=== PATIENT | female | born 1990 | race Caucasian/White ===

== ENCOUNTER → 2016-12-02 | Outpatient (CLI) | payer BC ==
[~2016-12-02] MED LIST: BCPILLS PO; FEXO1TAB46 PO; FLUT0.0529 NAE
[2016-12-06 03:01] LABS: CHLAMYDIA TRACH RNA*** NOT DETECTED (NOT DETECTED); GC (NEIS GONORRHOEAE)RNA** NOT DETECTED (NOT DETECTED)
== END | disposition home or self-care (01) ==
LOC: C.LABSPEC 13:11
PROVIDERS: ATTEND Obstetrics & Gynecology
DX: Z01.419 Encounter for gynecological examination (general) (routine) without abnormal findings (principal)

== ENCOUNTER → 2018-01-05 | Outpatient (CLI) | payer BC | LOC: C.PAPS 13:52 | PROVIDERS: ATTEND Physician Assistant | DX: Z01.419 Encounter for gynecological examination (general) (routine) without abnormal findings (principal) ==

== ENCOUNTER 2023-10-04 00:58 | Inpatient (IN) ==
[2023-10-04] MEDS ORDERED: LIDOCAINE 1% LOCAL 20 ML VIAL INFIL PRN (02:36)
[2023-10-04] MEDS ORDERED: OXYTOCIN 30 UNITS/500 ML BAG IV PRN ×4 (02:36→20:55)
--- NOTE | 2023-10-04 02:43 | History & Physical Report ---
Date of Service October 04, 2023 Assessment & Plan (1) Velamentous insertion of umbilical cord, antepartum: Plan: 33yo at 38w0d GA present with SROM. 1. Fetus: Cat 1 2. Labor: Confirmed SROM. Start pitocin 3. GBS negative 4. Vitals WNL 5. A1gDM: Normal BG (2) Obesity affecting , antepartum: (3) Gestational diabetes mellitus (GDM) affecting : (4) Supervision of normal first : (5) SROM (spontaneous rupture of membranes): History of Present Illness Primary Care Provider: Sadfa Saldivar DO 33yo at 38w0d GA present with SROM. Reporting irregular contractions. No VB. Good FM and Delivery Plans Pt's brother w/ Bicuspid Aortic Valve - echo - 07/12/23 @ [facility] [place] Obesity (BMI between 35-39 @ beginning of ) *Growth US @ 32 wks *Weekly NSTs @ 36wks GDM w/16wk glucola *Begin monthly Growth US's @24wks Velamentous Cord Insertion and placenta with anterior succenturiate lobe from [facility] US *Growth US Q4wks @28wks *Weekly NSTs @36wks OB Labs: Blood Type O Positive 04/01/23 Antibody Screen NEGATIVE 04/01/23 Hemoglobin 12.5 g/dl (12.0-16.0) 07/29/23 Hematocrit 37.0 % (37.0-47.0) 07/29/23 Mean Corpuscular Volume 89.7 fL (80.0-100.0) 04/01/23 Platelet Count 308 K/uL (130-400) 04/01/23 Rubella IgG Antibody Immune (Immune) 04/01/23 Rapid Plasma Reagin Nonreactive (Nonreactive) 04/01/23 Hepatitis B Surface Antigen. NON-REACTIVE (NON-REACTIVE) 04/01/23 Hepatitis C Antibody Neg (Neg) 12/27/20 Hepatitis C Antibody (EIA) NON-REACTIVE (NON-REACTIVE) 04/01/23 HIV (1&2) Ag and Ab Confirmation NON-REACTIVE (NON-REACTIVE) 04/01/23 Glucose 1 Hour 50 gm Load 152 mg/dl (70-130) H 05/06/23 OB Optional Labs: Chlamydia trachomatis RNA Not Detected (NotDetected) 04/01/23 Neisseria gonorrhoeae RNA Not Detected (NotDetected) 04/01/23 Labs Reviewed: Horizon 14-negative--mln cfdna-low risk--mln Allergies Allergy/AdvReac Type Severity Reaction Status Date / Time Penicillins Allergy Rash Verified 10/04/23 01:28 Home Medications Medication Instructions Recorded Confirmed Type citalopram 40 mg tablet (Celexa) 40 mg PO DAILY 10/10/21 10/04/23 History docosahexaenoic acid [ DHA] 1 tab PO DAILY 03/02/23 10/04/23 History aspirin 81 mg tablet,delayed 81 mg PO DAILY 05/06/23 10/04/23 History release (Adult Aspirin Regimen) acetone (urine) test (Ketone Urine #50 ea 05/27/23 09/30/23 Rx Test strips) blood sugar diagnostic (OneTouch #150 ea 05/27/23 09/30/23 Rx Verio test strips) blood-glucose meter (OneTouch #1 ea 05/27/23 09/30/23 Rx Verio Reflect Meter) lancets 33 gauge #150 ea 05/27/23 09/30/23 Rx Patient History Medical History (Updated 10/04/23 @ 02:45 by Israel Apodaca MD) IBS (irritable bowel syndrome) Depression with anxiety History of chicken pox No pertinent past medical history Surgical History H/O oral surgery wisdom teeth Family History (Updated 03/26/23 @ 15:10 by Yanet Person) Grandmother (Paternal) Breast cancer Colorectal cancer Father Diabetes Multiple myeloma Denies family history of Ovarian cancer Social History (Updated 03/26/23 @ 15:11 by Yanet Person) Smoking Status: Never smoker Second Hand Exposure: No; Do You Dip or Chew Tobacco: No; Hx Alcohol Use: Yes Hx Substance Use: No Preferred Language: Persian Communication Ability: Effective Rn Coronary Care Unit Required: No Beliefs That Will Affect Care: None marital status: marital status details: Aleks Deluca (31) [phone] Current Living Situation: Spouse Current Living Situation Comment: lives with spouse, dog current occupational status: employed current occupation: RN [employer] Other Information That Helps Us Care for You: No Feels Safe at Home: Yes Safety Concerns: Feels Safe At This Time Assistive Devices: Contacts Physical Exam Genitourinary: normal external appearance Manual OB Exam: + cervical dilation 2 cm, + cervical effacement 80%, + station -2 and + amniotic fluid clear OB Exam Monitor Tracing: + external FHT monitor used, + external uter ine monitor used, + category I and + normal FHT variability; no early decelerations present, no late decelerations present and no variable decelerations Results & Data Vital Signs (Past 12 Hours) Vital Signs Temp Pulse Resp BP 10/04/23 01:30 36.8 C 86 18 130/72 10/04/23 01:19 36.8 C 86 18 130/72 Coding Level of Care Code None Diagnoses Velamentous insertion of umbilical cord, antepartum O43.129 Obesity affecting , antepartum, unspecified obesity type O99.210 Obesity type affecting : unspecified obesity Gestational diabetes mellitus (GDM) affecting O24.419 Encounter for supervision of normal first in third trimester Z34.03 Trimester: third trimester SROM (spontaneous rupture of membranes) (2) Obesity affecting , antepartum Obesity type affecting : unspecified obesity Qualified Code(s): O99.210 - Obesity complicating , unspecified trimester (4) Supervision of normal first Trimester: third trimester Qualified Code(s): Z34.03 - Encounter for supervision of normal first , third trimester
[2023-10-04] MEDS: LACTATED RINGER'S 1,000 ML IV PRN ×5 (03:00→18:11)
[2023-10-04 03:23] LABS: Hematocrit (blood only) 38.6 % (37.0-47.0); Hemoglobin 12.8 g/dl (12.0-16.0); Mean Corpuscular Hemoglobin 30.3 pg (25.0-34.0); Mean Corpuscular Hgb Conc 33.2 g/dL (32.0-36.0); Mean Corpuscular Volume 91.3 fL (80.0-100.0); Mean Platelet Volume 10.1 fL (9.4-12.4); Platelet Count 291 K/uL (130-400); RDW Standard Deviation 41.9 fL (36.4-46.3); Red Blood Count 4.23 M/uL (4.20-5.40); White Blood Count 19.81 K/ul (4.8-10.8)
--- NOTE | 2023-10-04 03:49 | Anesthesiology Consultation ---
Date of Service October 04, 2023 Assessment & Plan Chart Review Chart Review: Patient NOT seen in Pre Admission Testing and Acceptable Risk for Labor Epidural Consults Requested none ASA ASA3 Proposed Anesthesia Anesthesia Type: Labor Epidural Risk / Benefits Reviewed With: PT / POA / Parent / Guardian, Accepts Plan and Informed Consent Obtained History Height/Weight Height: 5 ft 5 in Weight: 109.769 kg Allergies Allergy/AdvReac Type Severity Reaction Status Date / Time Penicillins Allergy Rash Verified 10/04/23 01:28 Medications Home Medications Medication Instructions Recorded Confirmed Last Taken citalopram 40 mg tablet (Celexa) 40 mg PO DAILY 10/10/21 10/04/23 10/03/23 22:00 docosahexaenoic acid [ DHA] 1 tab PO DAILY 03/02/23 10/04/23 10/03/23 22:00 aspirin 81 mg tablet,delayed 81 mg PO DAILY 05/06/23 10/04/23 10/03/23 22:00 release (Adult Aspirin Regimen) acetone (urine) test (Ketone Urine #50 ea 05/27/23 09/30/23 Unknown Test strips) blood sugar diagnostic (OneTouch #150 ea 05/27/23 09/30/23 Unknown Verio test strips) blood-glucose meter (OneTouch #1 ea 05/27/23 09/30/23 Unknown Verio Reflect Meter) lancets 33 gauge #150 ea 05/27/23 09/30/23 Unknown Active Medications Generic Name Dose Route Start Last Admin Trade Name Freq PRN Reason Stop Dose Admin Lactated Ringer's 1,000 mls @ 125 mls/hr 10/04/23 02:36 10/04/23 04:00 Lr IV 10/06/23 02:35 125 mls/hr .Q8H PRN Administration L&D Protocol Protocol NPO Date Last Intake of Fluids: 10/04/23 Time Last Intake of Fluids: 03:00 Date Last Intake of Solids: 10/03/23 Time Last Intake of Solids: 17:00 Past Medical History Medical History (Updated 10/04/23 @ 02:45 by Israel Apodaca MD) IBS (irritable bowel syndrome) Depression with anxiety History of chicken pox No pertinent past medical history Exercise / Class Metabolic Activity 1 > 8 Run/Swim/Ski/Tennis Past Family History Family History (Updated 03/26/23 @ 15:10 by Yanet Person) Grandmother (Paternal) Breast cancer Colorectal cancer Father Diabetes Multiple myeloma Denies family history of Ovarian cancer Past Surgical History Surgical History H/O oral surgery wisdom teeth Past Anesthesia History No Hx of Anesthesia Complications and No Family Hx of Anesthesia Complications History of PONV No Hx of PONV and No Hx of Motion Sickness Social History Smoking Status: Never smoker Do You Dip or Chew Tobacco: No Hx Alcohol Use: Yes Hx Substance Use: No substance use type: does not use Review of Systems ROS Unobtainable: All systems reviewed & are unremarkable except as noted in HPI & below Physical Exam Vital Signs Last Vital Signs Temp 36.7 C 10/04/23 03:20 Pulse 86 10/04/23 01:30 Resp 18 10/04/23 01:30 BP 130/72 10/04/23 01:30 Constitutional no acute distress ENMT Mouth: no TMJ abnormality Thyromental Distance: > or= 3.5 Finger Breadths Mallampati Class: III Neck normal visual inspection and trachea midline; neck extension not limited Respiratory normal respiratory effort Auscultation: lungs clear to auscultation bilaterally Cardiovascular Rate/Rhythm: regular rate and regular rhythm Heart Sounds: no murmur Musculoskeletal Spine: normal cervical ROM Extremities: full ROM of extremities Neurologic moves all extremities Psychiatric Orientation: alert and oriented x 3 Testing Laboratory Results 10/04/23 02:58 10/04/23 02:02 POC Glucose 106 H
[2023-10-04] MEDS ORDERED: fentaNYL citrate PF 100 MCG/2 ML VIAL ONE (03:57)
[2023-10-04] MEDS ORDERED: ePHEDrine sulfate 50 MG/ML AMP ONE (03:57)
[2023-10-04] MEDS ORDERED: BUPIVACAINE 0.25% PF 30 ML VIAL ONE (03:58)
[2023-10-04] MEDS ORDERED: SODIUM CHLORIDE 0.9% PF INJ 10 ML VIAL ONE (03:58)
[2023-10-04] MEDS ORDERED: LIDOCAINE 2%/EPINEPHRINE 1:200,000 20 ML PF ONE (03:58)
[2023-10-04] MEDS ORDERED: fentANYL 2 MCG/ML BUPIVacaine 0.125%-NSS 100ML BAG ONE (03:58)
[2023-10-04] MEDS ORDERED: fentaNYL citrate PF 100 MCG/2 ML VIAL EPI STA (04:11)
[2023-10-04] MEDS ORDERED: SODIUM CHLORIDE 0.9% PF INJ 10 ML VIAL EPI STA (04:11)
[2023-10-04] MEDS ORDERED: NALOXONE HCL 1 MG in SODIUM CHLORIDE 0.9% 1,000 ML IV PRN (04:11)
[2023-10-04] MEDS ORDERED: ePHEDrine sulfate 50 MG/ML AMP IV PRN (04:11)
[2023-10-04] MEDS ORDERED: LIDOCAINE 2% MPF LOCAL 5 ML VIAL EPI PRN (04:11)
[2023-10-04] MEDS ORDERED: BUPIVACAINE 0.25% PF 30 ML VIAL EPI PRN (04:11)
[2023-10-04] MEDS ORDERED: diphenhydrAMINE 50 MG/ML VIAL IV PRN (04:11)
[2023-10-04] MEDS ORDERED: BUPIVACAINE 0.25% PF 30 ML VIAL EPI STA (04:11)
[2023-10-04] MEDS ORDERED: ROPIVACAINE 0.5% PF 5 MG/ML 20 ML VIAL EPI PRN (04:11)
[2023-10-04] MEDS ORDERED: NALOXONE HCL 0.4 MG/1 ML VIAL/CARP IV PRN (04:11)
[2023-10-04] MEDS ORDERED: NALBUPHINE HCL 5 MG in SYRINGE 0 ML IV PRN (04:11)
[2023-10-04] MEDS ORDERED: SODIUM CHLORIDE 0.9% PF INJ 10 ML VIAL EPI PRN (04:11)
[2023-10-04] MEDS ORDERED: fentaNYL citrate PF 100 MCG/2 ML VIAL EPI PRN (04:11)
[2023-10-04] MEDS ORDERED: LIDOCAINE 2%/EPINEPHRINE 1:200,000 20 ML PF EPI STA (04:11)
--- NOTE | 2023-10-04 07:51 | Labor Progress Brief Note ---
Date of Service October 04, 2023 Subjective Presented to bedside for evaluation due to a prolonged deceleration. Deceleration lasted approximately 10 minutes. Resuscitation measures were implemented by nursing staff. Upon presentation to bedside I immediately placed a scalp electrode for closer monitoring. Upon placement the scalp electrode the heart rate was noted to be recovering to a baseline of 150 bpm. There was a short period of tachycardia with return to normal baseline heart rate shortly thereafter. Variability was a mix of moderate to minimal. Occasional variable decelerations noted in the immediate recovery phase. Assessment & Plan (1) Velamentous insertion of umbilical cord, antepartum: Plan: 33yo at 38w0d GA present with SROM. Presented to bedside with a prolonged decel as noted per HPI. Resuscitation measures implemented and heart rate recovery noted. You are continue to closely monitor the heart rate which is noted to be a mix of category 1 and category 2 with category 2 for periods of minimal variability and occasional variable deceleration. 1. Fetus: Cat 1/cat2 at present 2. Labor: Confirmed SROM. Pit discontinued. Patient appears to be laboring spontaneously 3. GBS negative 4. Vitals WNL 5. A1gDM: Normal BG (2) SROM (spontaneous rupture of membranes): (3) heart rate decelerations affecting management of mother: Admission and Anticipated Discharge Date Admission Date: October 04, 2023 Physical Exam Genitourinary: normal external appearance Manual OB Exam: + cervical dilation (3.5), + cervical effacement 80%, + station -2 and + amniotic fluid clear OB Exam Monitor Tracing: + external FHT monitor used, + external uterine monitor used, + category I and + category II See HPI for additional details on tracing evaluation. Tocometer showed tachysystole prior to deceleration. Results & Data Vital Signs (Past 12 Hours) Vital Signs Temp Pulse Resp BP Pulse Ox 10/04/23 05:27 100 10/04/23 05:27 92 H 10/04/23 05:26 90 10/04/23 05:26 132/63 10/04/23 05:22 100 10/04/23 05:22 85 10/04/23 05:17 100 10/04/23 05:17 88 10/04/23 05:12 100 10/04/23 05:12 82 10/04/23 05:11 81 10/04/23 05:11 139/61 10/04/23 05:07 100 10/04/23 05:07 84 10/04/23 05:02 100 10/04/23 05:02 87 10/04/23 05:00 18 10/04/23 05:00 18 10/04/23 04:57 100 10/04/23 04:57 89 10/04/23 04:55 96 H 10/04/23 04:55 125/65 10/04/23 04:52 100 10/04/23 04:52 92 H 10/04/23 04:47 100 10/04/23 04:47 127 H 10/04/23 04:44 88 10/04/23 04:44 137/70 10/04/23 04:42 98 10/04/23 04:42 90 10/04/23 04:37 98 10/04/23 04:37 91 H 10/04/23 04:32 98 10/04/23 04:32 100 H 10/04/23 04:27 96 10/04/23 04:27 90 10/04/23 04:27 131/60 10/04/23 04:24 84 10/04/23 04:24 137/62 10/04/23 04:22 97 10/04/23 04:22 86 10/04/23 04:21 85 10/04/23 04:21 139/69 10/04/23 04:18 100 H 10/04/23 04:18 149/66 H 10/04/23 04:17 97 10/04/23 04:17 91 H 10/04/23 04:15 96 H 10/04/23 04:15 133/63 10/04/23 04:12 98 10/04/23 04:12 89 10/04/23 04:12 128/60 10/04/23 04:09 16 10/04/23 04:09 16 10/04/23 04:09 90 10/04/23 04:09 133/62 10/04/23 04:07 98 10/04/23 04:07 89 10/04/23 04:06 16 10/04/23 04:06 16 10/04/23 04:06 81 10/04/23 04:06 132/80 10/04/23 04:03 173 H 10/04/23 04:03 133/82 10/04/23 04:02 99 10/04/23 04:02 97 H 10/04/23 04:00 88 10/04/23 04:00 136/78 10/04/23 03:57 99 10/04/23 03:57 92 H 10/04/23 03:52 100 10/04/23 03:52 91 H 10/04/23 03:47 99 10/04/23 03:47 89 10/04/23 03:20 36.7 C 10/04/23 01:30 36.8 C 86 18 130/72 10/04/23 01:19 36.8 C 86 18 130/72 Coding Level of Care Code None Diagnoses Velamentous insertion of umbilical cord, antepartum O43.129 SROM (spontaneous rupture of membranes) heart rate decelerations affecting management of mother O36.8390
[2023-10-04] MEDS ORDERED: ONDANSETRON INJ 2 MG/ML 2 ML VIAL IV PRN (11:34)
[2023-10-04] MEDS: fentANYL 2 MCG/ML BUPIVacaine 0.125%-NSS 100ML BAG EPI PRN ×2 (12:34→19:02)
--- NOTE | 2023-10-04 13:07 | Labor Progress Brief Note ---
Date of Service October 04, 2023 Subjective Feeling pressure Assessment & Plan (1) SROM (spontaneous rupture of membranes): (2) Velamentous insertion of umbilical cord, antepartum: (3) Gestational diabetes mellitus (GDM) affecting : Plan 33 yo G1 at 38 wga admitted w/ srom VSS Fetus cat 1 Labor - pit at 6 after restarting, IUPC placed. SVE ~7cm, with ctx progresses to 7-8. Will continue repositioning and monitor progress w/ IUPC A1GDM - BG wnl on admit GBS neg epidural prn Admission and Anticipated Discharge Date Admission Date: October 04, 2023 Physical Exam Genitourinary: Manual OB Exam: + cervical dilation 7 cm, + cervical effacement 90% and + station 0 OB Exam Monitor Tracing: + scalp electrode used, + intra-uterine pressure catheter used (placed, q3) and + category I (140/mod/+accel/-decel) Results & Data Vital Signs (Past 12 Hours) Vital Signs Temp Pulse Resp BP Pulse Ox 10/04/23 13:02 99 10/04/23 13:02 95 H 10/04/23 12:58 92 H 10/04/23 12:58 135/83 10/04/23 12:57 96 10/04/23 12:57 92 H 10/04/23 12:52 98 10/04/23 12:52 107 H 10/04/23 12:47 99 10/04/23 12:47 103 H 10/04/23 12:42 98 10/04/23 12:42 95 H 10/04/23 12:42 93 H 10/04/23 12:42 143/79 H 10/04/23 12:37 97 10/04/23 12:37 88 10/04/23 12:32 98 10/04/23 12:32 98 H 10/04/23 12:27 97 10/04/23 12:27 92 H 10/04/23 12:27 138/66 10/04/23 12:22 97 10/04/23 12:22 95 H 10/04/23 12:17 98 10/04/23 12:17 96 H 10/04/23 12:12 97 10/04/23 12:12 88 10/04/23 12:11 78 10/04/23 12:11 120/61 10/04/23 12:07 97 10/04/23 12:07 88 10/04/23 12:02 97 10/04/23 12:02 89 10/04/23 11:57 96 10/04/23 11:57 85 10/04/23 11:56 88 10/04/23 11:56 109/57 L 10/04/23 11:52 97 10/04/23 11:52 88 10/04/23 11:47 97 10/04/23 11:47 82 10/04/23 11:42 98 10/04/23 11:42 90 10/04/23 11:42 117/64 10/04/23 11:37 97 10/04/23 11:37 87 10/04/23 11:32 96 10/04/23 11:32 79 10/04/23 11:30 18 10/04/23 11:30 18 10/04/23 11:27 97 10/04/23 11:27 78 10/04/23 11:27 123/58 L 10/04/23 11:22 96 10/04/23 11:22 79 10/04/23 11:20 18 10/04/23 11:20 98.2 F 18 10/04/23 11:17 96 10/04/23 11:17 100 H 10/04/23 11:12 97 10/04/23 11:12 92 H 10/04/23 11:11 86 10/04/23 11:11 133/72 10/04/23 11:07 98 10/04/23 11:07 91 H 10/04/23 11:02 97 10/04/23 11:02 87 10/04/23 11:00 18 10/04/23 11:00 18 10/04/23 10:58 81 10/04/23 10:58 123/75 10/04/23 10:57 97 10/04/23 10:57 82 10/04/23 10:52 98 10/04/23 10:52 88 10/04/23 10:47 98 10/04/23 10:47 89 10/04/23 10:42 100 10/04/23 10:42 93 H 10/04/23 10:42 85 10/04/23 10:42 136/68 10/04/23 10:37 98 10/04/23 10:37 100 H 10/04/23 10:32 97 10/04/23 10:32 83 10/04/23 10:30 18 10/04/23 10:30 18 10/04/23 10:27 98 10/04/23 10:27 100 H 10/04/23 10:26 85 10/04/23 10:26 131/75 10/04/23 10:22 97 10/04/23 10:22 88 10/04/23 10:17 97 10/04/23 10:17 95 H 10/04/23 10:12 98 10/04/23 10:12 90 10/04/23 10:12 85 10/04/23 10:12 131/74 10/04/23 10:07 97 10/04/23 10:07 100 H 10/04/23 10:02 97 10/04/23 10:02 101 H 10/04/23 09:57 96 10/04/23 09:57 88 10/04/23 09:57 130/67 10/04/23 09:52 96 10/04/23 09:52 96 H 10/04/23 09:47 98 10/04/23 09:47 95 H 10/04/23 09:42 95 10/04/23 09:42 90 10/04/23 09:41 90 10/04/23 09:41 120/72 10/04/23 09:37 97 10/04/23 09:37 98 H 10/04/23 09:32 97 10/04/23 09:32 91 H 10/04/23 09:30 18 10/04/23 09:30 18 10/04/23 09:28 98.2 F 10/04/23 09:27 97 10/04/23 09:27 103 H 10/04/23 09:27 122/69 10/04/23 09:22 97 10/04/23 09:22 103 H 10/04/23 09:17 96 10/04/23 09:17 92 H 10/04/23 09:12 97 10/04/23 09:12 112 H 10/04/23 09:12 102 H 10/04/23 09:12 121/71 10/04/23 09:07 97 10/04/23 09:07 96 H 10/04/23 09:02 97 10/04/23 09:02 102 H 10/04/23 09:00 18 10/04/23 09:00 18 10/04/23 08:57 96 10/04/23 08:57 101 H 10/04/23 08:56 104 H 10/04/23 08:56 128/69 10/04/23 08:52 98 10/04/23 08:52 105 H 10/04/23 08:47 96 10/04/23 08:47 97 H 10/04/23 08:42 97 10/04/23 08:42 95 H 10/04/23 08:41 107 H 10/04/23 08:41 122/65 10/04/23 08:37 96 10/04/23 08:37 97 H 10/04/23 08:32 97 10/04/23 08:32 100 H 10/04/23 08:30 18 10/04/23 08:30 18 10/04/23 08:27 97 10/04/23 08:27 99 H 10/04/23 08:27 93 H 10/04/23 08:27 130/68 10/04/23 08:22 97 10/04/23 08:22 98 H 10/04/23 08:17 98 10/04/23 08:17 99 H 10/04/23 08:12 96 10/04/23 08:12 101 H 10/04/23 08:11 97 H 10/04/23 08:11 129/69 10/04/23 08:07 97 10/04/23 08:07 100 H 10/04/23 08:02 96 10/04/23 08:02 93 H 10/04/23 08:00 18 10/04/23 08:00 18 10/04/23 07:57 96 10/04/23 07:57 96 H 10/04/23 07:57 131/67 10/04/23 07:52 93 10/04/23 07:52 103 H 10/04/23 07:47 97 10/04/23 07:47 116 H 10/04/23 07:43 96 H 10/04/23 07:43 131/72 10/04/23 07:42 96 10/04/23 07:42 97 H 10/04/23 07:38 96 H 10/04/23 07:38 140/70 10/04/23 07:37 96 10/04/23 07:37 96 H 10/04/23 07:32 96 10/04/23 07:32 95 H 10/04/23 07:30 18 10/04/23 07:30 18 10/04/23 07:27 97 10/04/23 07:27 96 H 10/04/23 07:26 93 H 10/04/23 07:26 147/71 H 10/04/23 07:22 97 10/04/23 07:22 89 10/04/23 07:17 96 10/04/23 07:17 99 H 10/04/23 07:15 18 10/04/23 07:15 98.4 F 18 10/04/23 07:12 97 10/04/23 07:12 93 H 10/04/23 07:11 95 H 10/04/23 07:11 146/81 H 10/04/23 07:07 96 10/04/23 07:07 99 H 10/04/23 07:05 94 10/04/23 07:05 93 H 10/04/23 07:02 95 10/04/23 07:02 94 H 10/04/23 07:00 18 10/04/23 07:00 18 10/04/23 06:57 95 10/04/23 06:57 89 10/04/23 06:56 89 10/04/23 06:56 137/71 10/04/23 06:54 94 10/04/23 06:54 92 H 10/04/23 06:52 96 10/04/23 06:52 106 H 10/04/23 06:47 95 10/04/23 06:47 95 H 10/04/23 06:42 97 10/04/23 06:42 105 H 10/04/23 06:42 138/76 10/04/23 06:37 96 10/04/23 06:37 97 H 10/04/23 06:32 96 10/04/23 06:32 98 H 10/04/23 06:30 18 10/04/23 06:30 18 10/04/23 06:27 97 10/04/23 06:27 101 H 10/04/23 06:26 96 H 10/04/23 06:26 133/73 10/04/23 06:22 97 10/04/23 06:22 112 H 10/04/23 06:17 96 10/04/23 06:17 106 H 10/04/23 06:12 100 10/04/23 06:12 106 H 10/04/23 06:11 98 H 10/04/23 06:11 138/76 10/04/23 06:07 100 10/04/23 06:07 98 H 10/04/23 06:02 100 10/04/23 06:02 104 H 10/04/23 06:00 18 10/04/23 06:00 18 10/04/23 05:57 100 10/04/23 05:57 93 H 10/04/23 05:56 100 H 10/04/23 05:56 139/74 10/04/23 05:52 100 10/04/23 05:52 91 H 10/04/23 05:47 100 10/04/23 05:47 92 H 10/04/23 05:42 100 10/04/23 05:42 97 H 10/04/23 05:41 88 10/04/23 05:41 135/74 10/04/23 05:37 100 10/04/23 05:37 93 H 10/04/23 05:32 100 10/04/23 05:32 85 10/04/23 05:30 20 10/04/23 05:30 98.1 F 20 10/04/23 05:27 100 10/04/23 05:27 92 H 10/04/23 05:26 90 10/04/23 05:26 132/63 10/04/23 05:22 100 10/04/23 05:22 85 10/04/23 05:17 100 10/04/23 05:17 88 10/04/23 05:12 100 10/04/23 05:12 82 10/04/23 05:11 81 10/04/23 05:11 139/61 10/04/23 05:07 100 10/04/23 05:07 84 10/04/23 05:02 100 10/04/23 05:02 87 10/04/23 05:00 18 10/04/23 05:00 18 10/04/23 05:00 18 10/04/23 05:00 18 10/04/23 04:57 100 11/13/23 04:57 89 10/04/23 04:55 96 H 10/04/23 04:55 125/65 10/04/23 04:52 100 10/04/23 04:52 92 H 10/04/23 04:47 100 10/04/23 04:47 127 H 10/04/23 04:44 88 10/04/23 04:44 137/70 10/04/23 04:42 98 10/04/23 04:42 90 10/04/23 04:37 98 10/04/23 04:37 91 H 10/04/23 04:32 98 10/04/23 04:32 100 H 10/04/23 04:27 96 10/04/23 04:27 90 10/04/23 04:27 131/60 10/04/23 04:24 84 10/04/23 04:24 137/62 10/04/23 04:22 97 10/04/23 04:22 86 10/04/23 04:21 85 10/04/23 04:21 139/69 10/04/23 04:18 100 H 10/04/23 04:18 149/66 H 10/04/23 04:17 97 10/04/23 04:17 91 H 10/04/23 04:15 96 H 10/04/23 04:15 133/63 10/04/23 04:12 98 10/04/23 04:12 89 10/04/23 04:12 128/60 10/04/23 04:09 16 10/04/23 04:09 16 10/04/23 04:09 90 10/04/23 04:09 133/62 10/04/23 04:07 98 10/04/23 04:07 89 10/04/23 04:06 16 10/04/23 04:06 16 10/04/23 04:06 81 10/04/23 04:06 132/80 10/04/23 04:03 173 H 10/04/23 04:03 133/82 10/04/23 04:02 99 10/04/23 04:02 97 H 10/04/23 04:00 88 10/04/23 04:00 136/78 10/04/23 03:57 99 10/04/23 03:57 92 H 10/04/23 03:52 100 10/04/23 03:52 91 H 10/04/23 03:47 99 10/04/23 03:47 89 10/04/23 03:20 98.1 F 10/04/23 01:30 98.2 F 86 18 130/72 10/04/23 01:19 98.2 F 86 18 130/72 Coding Level of Care Code None Diagnoses SROM (spontaneous rupture of membranes) Velamentous insertion of umbilical cord, antepartum O43.129 Gestational diabetes mellitus (GDM) affecting O24.419
[2023-10-04] MEDS ORDERED: NURSING L&D Epidural Breakthrough Pain Update ONE (13:41)
--- NOTE | 2023-10-04 20:51 | Anesthesia Procedure Note ---
Date of Service October 04, 2023 Anesthesia Post Epidural Note Vital Signs Vital Signs: Temp Pulse Resp BP Pulse Ox 98.6 F 97 H 18 143/68 H 96 10/04/23 19:30 10/04/23 20:37 10/04/23 19:30 10/04/23 20:37 10/04/23 19:59 Pain Intensity Abdomen: Pain Intensity: 8 Notes Mental Status: alert / awake / arousable and participated in evaluation Nausea / Vomiting: adequately controlled Pain: adequately controlled Airway Patency, RR, SpO2: stable & adequate BP & HR: stable & adequate Hydration State: stable & adequate Neuraxial Anesthesia: was administered and sensory block is resolving Anesthetic Complications: no major complications apparent and Pt Satisfied with anesthetic care Epidural: Removed without complications and With tip intact
[2023-10-04] MEDS ORDERED: bisacodyL 10 MG SUPP PR PRN (20:55)
[2023-10-04] MEDS ORDERED: ACETAMINOPHEN 325 MG TAB PO PRN (20:55)
[2023-10-04] MEDS ORDERED: HYDROCORTISONE ACETATE 25 MG SUPP PR PRN (20:55)
[2023-10-04] MEDS ORDERED: DIPHTHERIA/TETANUS/PERTUSSIS Vaccine (Tdap, Age 7+yrs) 0.5mL SYR/VL IM ONE (20:55)
[2023-10-04] MEDS ORDERED: BENZOCAINE 20% SPRY 85 APPLN/85 GM CAN EXT PRN (20:55)
--- NOTE | 2023-10-04 20:59 | Delivery Summary ---
Vaginal Delivery Summary Date of Service October 04, 2023 Vaginal Delivery Summary [facility] PREOPERATIVE DIAGNOSIS: 1. Single intrauterine at 38 wga 2. A1GDM 3. Velamentous cord insertion 4. Succenturiate lobe POSTOPERATIVE DIAGNOSIS: 1. Single intrauterine at 38 wga 2. A1GDM 3. Velamentous cord insertion 4. Bilobe Placenta 5. Delivered PROCEDURE: 1. Normal spontaneous vaginal delivery. SURGEON: Michelle Acevedo MD ANESTHESIA: Epidural. ESTIMATED BLOOD LOSS: 300 mL FLUIDS: Continuous LR. URINE OUTPUT: None. COMPLICATIONS: None. CONDITION: Stable. INDICATIONS: 33 yo G1 at 38 wga presented early this morning with SROM and 2cm on arrival. She was started on pitocin and received an epidural for pain control. Significant decel was noted around 3-4cm and so FSE was applied and pitocin paused. She continued to progress to 6cm however ctx spaced out so pitocin was restarted and IUPC placed to help guide contractions. She did progress to complete and desired to push. FINDINGS: A viable female infant, weight pending with Apgars of 8 and 9 at 1 and 5 minutes respectively. SPECIMEN: Cord blood OPERATIVE REPORT: The patient progressed to 10 cm, 100% effaced and +2 station, pushed over intact perineum with anesthesia to deliver a viable female infant, weight and Apgars as above. Head of delivered in ELADIO position. No nuchal cord was present. Body and shoulders were delivered without difficulty. was delivered to maternal abdomen and nursing staff. Delayed cord clamping was performed for 60 seconds. Cord was clamped and cut. Cord blood was obtained. Placenta delivered spontaneously intact with 3-vessel cord. IV oxytocin and fundal massage were given for excellent hemostasis. Vagina, cervix, perineum, and placenta were inspected. A vaginal laceration and right labial laceration were made hemostatic with 3-0 and 4-0 vicryl respectively. A hemostatic periclitoral laceration did not need to be repaired. Sponge and needle counts correct x2. No sponges were left behind. Mother and stable in immediate period. [facility] Vaginal Delivery Charge Vaginal Delivery Codes: 75501 global code for the antepartum, delivery, and post- Delivery Type Details: [facility]
[2023-10-04] MEDS: DOCUSATE SODIUM 100 MG CAP PO SCH (21:24)
[2023-10-04] MEDS: IBUPROFEN 600 MG TAB PO PRN (21:25)
--- NOTE | 2023-10-05 07:20 | Obstetrical Progress Note ---
Date of Service October 05, 2023 Assessment & Plan (1) care following vaginal delivery: Plan Doing well Encourage ambulation Pain control Admission and Anticipated Discharge Date Admission Date: October 04, 2023 Supervising Physician Co-Signing Physician Notes Resident Physician Supervision Note: I interviewed and examined the patient. Discussed with Dr. Marcano and agree with findings and plan as documented in the note. Any exceptions or clarifications are listed here: PP1 s/p , doing well. VSS, exam benign and wnl. Continue routine pp care Documented By: Michelle Acevedo MD Subjective 33 yo post day 1 s/p Ambulation: ambulating normally Voiding: no voiding problems Passing Gas:: Yes Diet Tolerance:: regular diet Lochia:: Small Feeding Type:: bottle feeding Current Pain Level: minimal Resting comfortably this AM in NAD. Denies WILEY, CP, SOB, N/V/D, LE pain/swelling. Review of Systems Review of Systems: reviewed, per HPI Physical Exam Physical Exam: General: patient resting comfortably, NAD, non-toxic in appearance, answers questions appropriately. Skin: warm, dry, intact HEENT: NC/AT, anicteric sclera, conjunctiva without injection, moist mucus membranes. Heart: +S1/S2, regular, no m/r/g Lungs: equal air entry bilaterally, no rales/rhonchi/wheezes Abd: +BS, soft, uterine fundus firm at umbilicus. Ext: warm, no clubbing/cyanosis or edema, Lawanda's neg. Neuro: speech intact, no facial droop, moving all extremities on command. Results & Data Vital Signs (Past 12 Hours) Vital Signs Temp Pulse Pulse Resp BP BP Pulse Ox 10/05/23 02:25 36.7 C 80 18 113/70 10/04/23 22:50 37.0 C 88 18 135/80 10/04/23 22:37 90 10/04/23 22:37 146/68 H 10/04/23 22:23 96 H 10/04/23 22:23 153/80 H 10/04/23 22:07 86 10/04/23 22:07 146/67 H 10/04/23 22:03 18 10/04/23 21:52 95 H 10/04/23 21:52 163/74 H 10/04/23 21:37 90 10/04/23 21:37 156/83 H 10/04/23 21:22 93 H 10/04/23 21:22 153/80 H 10/04/23 21:07 18 10/04/23 21:07 96 H 10/04/23 21:07 149/80 H 10/04/23 20:52 91 H 10/04/23 20:52 149/70 H 10/04/23 20:37 36.7 C 18 10/04/23 20:37 97 H 10/04/23 20:37 143/68 H 10/04/23 20:26 93 H 10/04/23 20:26 136/67 10/04/23 20:11 96 H 10/04/23 20:11 138/71 10/04/23 19:59 96 10/04/23 19:59 109 H 10/04/23 19:54 90 10/04/23 19:54 113 H 10/04/23 19:53 87 L 10/04/23 19:53 121 H 10/04/23 19:49 96 10/04/23 19:49 108 H 10/04/23 19:46 105 H 10/04/23 19:46 147/74 H 10/04/23 19:44 95 10/04/23 19:44 131 H 10/04/23 19:41 85 L 10/04/23 19:41 102 H 10/04/23 19:39 98 10/04/23 19:39 126 H 10/04/23 19:36 89 L 10/04/23 19:36 116 H 10/04/23 19:34 95 10/04/23 19:34 106 H 10/04/23 19:30 18 10/04/23 19:30 37.0 C 18 10/04/23 19:29 94 10/04/23 19:29 108 H 10/04/23 19:28 87 L 10/04/23 19:28 101 H 10/04/23 19:24 93 10/04/23 19:24 102 H 10/04/23 19:19 95 10/04/23 19:19 104 H O2 Del Method 10/05/23 02:25 Room Air 10/04/23 22:50 Room Air 10/04/23 22:37 10/04/23 22:37 11/13/23 22:23 10/04/23 22:23 10/04/23 22:07 10/04/23 22:07 10/04/23 22:03 10/04/23 21:52 10/04/23 21:52 10/04/23 21:37 10/04/23 21:37 10/04/23 21:22 10/04/23 21:22 10/04/23 21:07 10/04/23 21:07 10/04/23 21:07 10/04/23 20:52 10/04/23 20:52 10/04/23 20:37 10/04/23 20:37 10/04/23 20:37 10/04/23 20:26 10/04/23 20:26 10/04/23 20:11 10/04/23 20:11 10/04/23 19:59 10/04/23 19:59 10/04/23 19:54 10/04/23 19:54 10/04/23 19:53 10/04/23 19:53 10/04/23 19:49 10/04/23 19:49 10/04/23 19:46 10/04/23 19:46 10/04/23 19:44 10/04/23 19:44 10/04/23 19:41 10/04/23 19:41 10/04/23 19:39 10/04/23 19:39 10/04/23 19:36 10/04/23 19:36 10/04/23 19:34 10/04/23 19:34 10/04/23 19:30 10/04/23 19:30 10/04/23 19:29 10/04/23 19:29 10/04/23 19:28 10/04/23 19:28 10/04/23 19:24 10/04/23 19:24 10/04/23 19:19 10/04/23 19:19 Resident Activity Tracking Resident Involvement: Resident Care Provided Care Provided: Adult Hospital Medicine
[2023-10-05] MEDS: FERROUS SULFATE 325 MG TAB PO SCH (07:53)
[2023-10-05] MEDS: DOCUSATE SODIUM 100 MG CAP PO SCH ×2 (07:53→20:42)
[2023-10-05] MEDS: PRENATAL VITAMIN 1 TAB PO SCH (07:53)
[2023-10-05] MEDS: IBUPROFEN 600 MG TAB PO PRN ×4 (07:54→23:15)
[2023-10-05] MEDS: CITALOPRAM 40 MG TAB PO SCH (07:54)
[2023-10-05] MEDS ORDERED: bisacodyL 5 MG TABEC PO SCH (20:00)
[2023-10-06] MEDS: DOCUSATE SODIUM 100 MG CAP PO SCH (07:41)
[2023-10-06] MEDS: FERROUS SULFATE 325 MG TAB PO SCH (07:41)
[2023-10-06] MEDS: PRENATAL VITAMIN 1 TAB PO SCH (07:42)
[2023-10-06] MEDS: IBUPROFEN 600 MG TAB PO PRN (07:43)
--- NOTE | 2023-10-06 07:51 | Obstetrical Progress Note ---
Date of Service October 06, 2023 Assessment & Plan (1) care following vaginal delivery: Plan Doing well Encourage ambulation Pain control Discharge today Admission and Anticipated Discharge Date Admission Date: October 04, 2023 Supervising Physician Co-Signing Physician Notes Resident Physician Supervision Note: I was present with Dr. Marcano during the history and exam. I discussed the case with the resident and agree with the findings and plan as documented in the note. Any exceptions or clarifications are listed here: [None] Documented By: Laureano Quinn MD, FACOG Subjective 33 yo post day 2 s/p Ambulation: ambulating normally Voiding: no voiding problems Passing Gas:: Yes Diet Tolerance:: regular diet Lochia:: Small Feeding Type:: bottle feeding Current Pain Level: minimal Resting comfortably this AM in NAD. Denies WILEY, CP, SOB, N/V/D, LE pain/swelling. Review of Systems Review of Systems: reviewed, per HPI Physical Exam Physical Exam: General: patient resting comfortably, NAD, non-toxic in appearance, answers questions appropriately. Skin: warm, dry, intact HEENT: NC/AT, anicteric sclera, conjunctiva without injection, moist mucus membranes. Heart: +S1/S2, regular, no m/r/g Lungs: equal air entry bilaterally, no rales/rhonchi/wheezes Abd: +BS, soft, uterine fundus firm at umbilicus. Ext: warm, no clubbing/cyanosis or edema, Lawanda's neg. Neuro: speech intact, no facial droop, moving all extremities on command. Results & Data Vital Signs (Past 12 Hours) Vital Signs Temp Pulse Resp BP Pulse Ox O2 Del Method 10/05/23 23:15 36.6 C 73 18 109/72 97 Room Air Resident Activity Tracking Resident Involvement: Resident Care Provided Care Provided: Adult Hospital Medicine
[2023-10-06] MEDS: CITALOPRAM 40 MG TAB PO SCH (08:44)
== END 2023-10-06 14:00 | disposition home or self-care (01) | DRG 807 ==
LOC: OPB 00:58 → 4S1 01:01 → 4E2 23:00
DX: F32.A Depression, unspecified; O76 Abnormality in fetal heart rate and rhythm complicating labor and delivery; Z83.3 Family history of diabetes mellitus; O70.0 First degree perineal laceration during delivery; O42.92 Full-term premature rupture of membranes, unspecified as to length of time between rupture and onset of labor; O26.893 Other specified pregnancy related conditions, third trimester; Z79.899 Other long term (current) drug therapy; E66.9 Obesity, unspecified; O99.344 Other mental disorders complicating childbirth; O43.193 Other malformation of placenta, third trimester; Z88.0 Allergy status to penicillin; O99.214 Obesity complicating childbirth; O24.429 Gestational diabetes mellitus in childbirth, unspecified control; Z82.79 Family history of other congenital malformations, deformations and chromosomal abnormalities; O43.123 Velamentous insertion of umbilical cord, third trimester; F41.9 Anxiety disorder, unspecified; Z79.82 Long term (current) use of aspirin; Z3A.38 38 weeks gestation of pregnancy; Z37.0 Single live birth

== ENCOUNTER 2025-10-05 07:46 | Inpatient (IN) ==
[2025-10-05] MEDS ORDERED: CALCIUM CARBONATE 500 MG CHEWABLE TAB PO PRN (08:04)
[2025-10-05] MEDS ORDERED: LIDOCAINE 1% LOCAL 20 ML VIAL INFIL PRN (08:04)
[2025-10-05] MEDS ORDERED: OXYTOCIN 30 UNITS/NSS 30 UNITS/500 ML BAG IV PRN ×2 (08:04→18:10)
--- NOTE | 2025-10-05 08:06 | History & Physical Report ---
Date of Service October 05, 2025 Assessment & Plan (1) 39 weeks gestation of : Plan Fair bulb to be inserted Pitocin Arom when indicated Monitor tracing, category 1 Admission and Anticipated Discharge Date Admission Date: October 05, 2025 History of Present Illness Chief Complaint: IOL Primary Care Provider: Sadaf Saldivar DO 35 yo at 39w2d admitted for IOL for postdates. complications include diet-controlled GDM. She takes Celexa 40mg daily as well as a vitamin. Denies WILEY, CP, SOB, N/V/D, LE pain. GBS neg, RH+ Allergies Allergy/AdvReac Type Severity Reaction Status Date / Time Penicillins Allergy Rash Verified 10/04/25 15:02 Home Medications Medication Instructions Recorded Confirmed Type citalopram 40 mg tablet (Celexa) 40 mg PO DAILY 10/10/21 10/04/25 History pyridoxine (vitamin B6) 25 mg 25 mg PO TID #30 tabs 02/26/25 10/04/25 Rx tablet promethazine PO 03/02/25 10/04/25 History promethazine 12.5 mg tablet 12.5 mg PO Q6H PRN nausea and 03/09/25 10/04/25 Rx vomiting #30 tabs acetone (urine) test (Ketone Urine #50 ea 03/30/25 10/04/25 Rx Test strips) blood sugar diagnostic (OneTouch #150 ea 03/30/25 10/04/25 Rx Verio test strips) blood-glucose meter (OneTouch #1 ea 03/30/25 10/04/25 Rx Verio Reflect Meter) lancets 33 gauge (OneTouch Delica #150 ea 03/30/25 10/04/25 Rx Plus Lancet) ondansetron HCl 4 mg tablet 4 mg PO Q6H PRN nausea and 04/03/25 10/04/25 Rx vomiting #120 tabs Patient History Medical History [place]'s gland inflammation Obesity affecting , antepartum IBS (irritable bowel syndrome) Depression with anxiety History of chicken pox Surgical History H/O oral surgery Family History (Updated 03/02/25 @ 10:00 by Yanet Person) Grandmother (Paternal) Breast cancer Colorectal cancer Father Diabetes Multiple myeloma Brother Bicuspid aortic valve Denies family history of Ovarian cancer Social History (Updated 03/02/25 @ 09:53 by Yanet Person) Smoking Status: Never smoker Second Hand Exposure: No; Do You Dip or Chew Tobacco: No; Hx Alcohol Use: Yes Hx Substance Use: No Preferred Language: Niuean Communication Ability: Effective Financial Sales Representative Required: No Beliefs That Will Affect Care: None marital status: marital status details: Aleks Deluca (33) [phone] Current Living Situation: Spouse and Family Current Living Situation Comment: lives with spouse, child, dog current occupational status: employed current occupation: RN [employer] Feels Safe at Home: Yes Assistive Devices: Contacts OB History History : 2 Full term: 1 Premature: 0 Total Number of Induced Abortions: 0 Total Number of Spontaneous Abortions: 0 Ectopics: 0 Multiple births: 0 Number of Living Children: 1 [employer] History Menstrual History Last menstrual period: Yes Menstrual reliability: definite Flow: normal Menstrual regularity: regular Monthly: Yes Age at menarche: 16 On control pills at conception: No Date of positive home test: 02/18/25 Menstrual history comments: cycles 28-30 days Details: last pap 10/10/[address] Downey Review of Systems All systems reviewed & are unremarkable except as noted in HPI & below Physical Exam Constitutional: WD/WN, vitals as above Respiratory: normal respiratory effort, lungs clear to auscultation Cardiovascular: RRR, no murmur, no edema Gastrointestinal (Abdomen): normal bowel sounds, soft, nontender, no hepatosplenomegaly +gravid Skin: no rashes, warm and dry Psychiatric: A+Ox3, euthymic affect Results & Data Laboratory Results OB Labs: Blood Type O Positive 03/09/25 Antibody Screen NEGATIVE 03/09/25 Hgb 11.0 g/dl (12.0-16.0) L 07/27/25 Hct 32.9 % (37.0-47.0) L 07/27/25 MCV 89.8 fL (80.0-100.0) 03/09/25 Plt Count 306 K/uL (130-400) 03/09/25 Rubella IgG Antibody Immune (Immune) 03/09/25 RPR Nonreactive (Nonreactive) 04/01/23 Treponema pallidum Ab Negative (Negative) 07/27/25 Hep Bs Antigen Negative (Negative) 03/09/25 Hep Bs Antigen NON-REACTIVE (NON-REACTIVE) 04/01/23 Hepatitis C Antibody Negative (Negative) 03/09/25 Hepatitis C Ab (EIA) NON-REACTIVE (NON-REACTIVE) 04/01/23 HIV 1&2 Ab/P24 Ag 4thGn Negative (Negative) 03/09/25 HIV (1&2) Ag & Ab Conf NON-REACTIVE (NON-REACTIVE) 04/01/23 Glucose 1 Hr 50 gm 152 mg/dl (70-130) H 05/06/23 OB Optional Labs: Chlamydia trachomatis RNA Not Detected (NotDetected) 03/09/25 Neisseria gonorrhoeae RNA Not Detected (NotDetected) 03/09/25 Monitoring External Monitor HR: 140 Variability: moderate Accelerations: present Decelerations: absent Contractions: absent Category 1 tracing Resident Activity Tracking Resident Involvement: Resident Care Provided Care Provided: OB Delivery
[2025-10-05 08:29] LABS: Hematocrit (blood only) 34.3 % (37.0-47.0); Hemoglobin 11.5 g/dL (12.0-16.0); Mean Corpuscular Hemoglobin 28.3 pg (25.0-34.0); Mean Corpuscular Volume 84.3 fL (80.0-100.0); Platelet Count 279 K/uL (130-400); RDW Standard Deviation 41.7 fL (36.4-46.3); Red Blood Count 4.07 M/uL (4.20-5.40); White Blood Count 11.74 K/ul (4.8-10.8)
[2025-10-05] MEDS: LACTATED RINGER'S 1,000 ML IV PRN (08:31)
[2025-10-05] MEDS: OXYTOCIN 30 UNITS/NSS 30 UNITS/500 ML BAG IV PRN (09:43)
[2025-10-05] MEDS ORDERED: diphenhydrAMINE 50 MG/ML VIAL IV PRN (11:03)
[2025-10-05] MEDS ORDERED: LIDOCAINE 2% MPF LOCAL 5 ML VIAL EPI PRN (11:03)
[2025-10-05] MEDS ORDERED: BUPIVACAINE 0.25% PF 30 ML VIAL EPI PRN (11:03)
[2025-10-05] MEDS ORDERED: NALOXONE HCL 1 MG in SODIUM CHLORIDE 0.9% 1,000 ML IV PRN (11:03)
[2025-10-05] MEDS ORDERED: fentANYL 2 MCG/ML BUPIVacaine 0.125%-NSS 100ML BAG EPI PRN (11:03)
[2025-10-05] MEDS ORDERED: NALOXONE HCL 0.4 MG/1 ML VIAL/CARP IV PRN (11:03)
[2025-10-05] MEDS ORDERED: ROPIVACAINE 0.5% PF 5 MG/ML 20 ML VIAL EPI PRN (11:03)
[2025-10-05] MEDS ORDERED: NALBUPHINE HCL INJ 10 MG/ML AMP IV PRN (11:03)
[2025-10-05] MEDS ORDERED: SODIUM CHLORIDE 0.9% PF INJ 10 ML VIAL EPI PRN (11:03)
--- NOTE | 2025-10-05 11:03 | Anesthesiology Consultation ---
Date of Service October 05, 2025 Assessment & Plan (1) Encounter for pre-operative examination: Chart Review Chart Review: Patient NOT seen in Pre Admission Testing and Acceptable Risk for Labor Epidural Consults Requested none History Height/Weight Height: 5 ft 5 in Weight: 108.141 kg Allergies Allergy/AdvReac Type Severity Reaction Status Date / Time Penicillins Allergy Rash Verified 10/04/25 15:02 Medications Home Medications Medication Instructions Recorded Confirmed Last Taken citalopram 40 mg tablet (Celexa) 40 mg PO DAILY 10/10/21 10/05/25 10/04/25 21:00 pyridoxine (vitamin B6) 25 mg 25 mg PO TID #30 tabs 02/26/25 10/04/25 Unknown tablet promethazine PO 03/02/25 10/04/25 Unknown promethazine 12.5 mg tablet 12.5 mg PO Q6H PRN nausea and 03/09/25 10/04/25 Unknown vomiting #30 tabs acetone (urine) test (Ketone Urine #50 ea 03/30/25 10/04/25 Unknown Test strips) blood sugar diagnostic (OneTouch #150 ea 03/30/25 10/04/25 Unknown Verio test strips) blood-glucose meter (OneTouch #1 ea 03/30/25 10/04/25 Unknown Verio Reflect Meter) lancets 33 gauge (OneTouch Delica #150 ea 03/30/25 10/04/25 Unknown Plus Lancet) ondansetron HCl 4 mg tablet 4 mg PO Q6H PRN nausea and 04/03/25 10/04/25 Unknown vomiting #120 tabs Active Medications Generic Name Dose Route Start Last Admin Trade Name Freq PRN Reason Stop Dose Admin Oxytocin 30 units in 500 mls @ 2 mls/hr 10/05/25 08:05 10/05/25 11:01 Pitocin 30 Units/Nss IV 10/07/25 08:04 0.12 units/hr .Q24H PRN 2 mls/hr Labor Induction/Augmentation Titration Protocol 0.12 UNITS/HR Lactated Ringer's 1,000 mls @ 125 mls/hr 10/05/25 08:04 10/05/25 08:31 Lr IV 10/07/25 08:03 125 mls/hr .Q8H PRN Administration L&D Protocol Protocol Past Medical History Medical History [place]'s gland inflammation Obesity affecting , antepartum IBS (irritable bowel syndrome) Depression with anxiety History of chicken pox Past Family History Family History Grandmother (Paternal) Breast cancer Colorectal cancer Father Diabetes Multiple myeloma Brother Bicuspid aortic valve Denies family history of Ovarian cancer Past Surgical History Surgical History H/O oral surgery wisdom teeth Social History Smoking Status: Never smoker Do You Dip or Chew Tobacco: No Hx Alcohol Use: Yes Hx Substance Use: No substance use type: does not use Physical Exam Vital Signs Last Vital Signs Temp 98.1 F 10/05/25 09:01 Pulse 82 10/05/25 10:18 Resp 22 10/05/25 09:01 BP 105/62 10/05/25 10:18 Testing Laboratory Results 10/05/25 08:15
[2025-10-05] MEDS: LIDOCAINE 2%/EPINEPHRINE 1:200,000 20 ML PF EPI STA (11:32)
[2025-10-05] MEDS: BUPIVACAINE 0.25% PF 30 ML VIAL EPI STA (11:32)
[2025-10-05] MEDS: fentANYL 2 MCG/ML BUPIVacaine 0.125%-NSS 100ML BAG ONE (11:33)
[2025-10-05] MEDS: ONDANSETRON INJ 2 MG/ML 2 ML VIAL IV PRN (14:02)
[2025-10-05] MEDS: BUPIVACAINE 0.25% PF 30 ML VIAL ONE (16:41)
[2025-10-05] MEDS: SODIUM CHLORIDE 0.9% PF INJ 10 ML VIAL EPI STA (16:41)
[2025-10-05] MEDS: SODIUM CHLORIDE 0.9% PF INJ 10 ML VIAL ONE (16:42)
[2025-10-05] MEDS: LIDOCAINE 2%/EPINEPHRINE 1:200,000 20 ML PF ONE (16:42)
--- NOTE | 2025-10-05 18:09 | Delivery Summary ---
Vaginal Delivery Summary Date of Service October 05, 2025 Vaginal Delivery Summary and 2nd Degree LAC Patient induced for polyhydramnios gestational diabetes Pitocin was started requested epidural artificial rupture of membranes then soon afterwards she delivered pushing baby out in occiput anterior position after delivery of the head there was no nuchal cord fluid was clear gentle traction on the baby no excessive force easy delivery anterior shoulder the baby was delivered and live vigorous male Cord clamped and cut cord blood obtained placenta removed with traction was a second-degree tear and a periurethral periclitoral tear periclitoral urethral tear was repaired first with 3-0 Vicryl Fair catheter placed to ensure patent urethra and due to the fact that she may have voiding issues in the first 12 hours second-degree tear then repaired with 3-0 Vicryl sponge and instrument counts correct QBL 300 mL MNPG Vaginal Delivery Charge Delivery Type Details: and 2nd Degree LAC
[2025-10-05] MEDS ORDERED: ACETAMINOPHEN 325 MG TAB PO PRN (18:10)
[2025-10-05] MEDS ORDERED: HYDROCORTISONE ACETATE 25 MG SUPP PR PRN (18:10)
[2025-10-05] MEDS: DIPHTHER/TETAN/PERTUS Vaccine (Tdap, Adol/Adult) 0.5mL IM ONE (18:36)
--- NOTE | 2025-10-05 19:05 | Anesthesia Procedure Note ---
Date of Service October 05, 2025 Anesthesia Post Epidural Note Vital Signs Vital Signs: Temp Pulse Resp BP Pulse Ox 98.1 F 84 20 111/65 100 10/05/25 14:10 10/05/25 18:54 10/05/25 14:10 10/05/25 18:54 10/05/25 17:45 Notes Mental Status: alert / awake / arousable and participated in evaluation Nausea / Vomiting: adequately controlled Pain: adequately controlled Airway Patency, RR, SpO2: stable & adequate BP & HR: stable & adequate Hydration State: stable & adequate Neuraxial Anesthesia: was administered and sensory block is resolving Anesthetic Complications: no major complications apparent and Pt Satisfied with anesthetic care Epidural: Removed without complications and With tip intact
[2025-10-05] MEDS: IBUPROFEN 600 MG TAB PO PRN (19:50)
[2025-10-05] MEDS: BENZOCAINE 20% SPRY 85 APPLN/85 GM CAN EXT PRN (19:50)
[2025-10-06] MEDS: DOCUSATE SODIUM 100 MG CAP PO SCH (00:59)
--- NOTE | 2025-10-06 06:50 | Obstetrical Progress Note ---
Date of Service October 06, 2025 Assessment & Plan (1) care following vaginal delivery: Plan 35 yo post- day 1 s/p Feels well today. Vital signs stable Continue post- care Encourage ambulation and Pain controlled with ibuprofen Hgb stable Discharge today, follow up with Dr. Quinn in 6 weeks Admission and Anticipated Discharge Date Admission Date: October 05, 2025 Supervising Physician Co-Signing Physician Notes Resident Physician Supervision Note: I interviewed and examined the patient. Discussed with Dr. Merida and agree with findings and plan as documented in the note. Any exceptions or clarifications are listed here: [None] Documented By: Laureano Quinn MD, FACOG Subjective 35 yo post- day 1 s/p Ambulation: ambulating normally Voiding: no voiding problems Passing Gas:: Yes Passing Stool:: no Diet Tolerance:: regular diet Lochia:: Small Feeding Type:: bottle feeding Current Pain Level: 2/10 Resting comfortably this AM in NAD. Denies WILEY, CP, SOB, N/V/D, LE pain/swelling. Review of Systems Review of Systems: All systems reviewed & are unremarkable except as noted in HPI & below Physical Exam Physical Exam: General: patient resting comfortably, NAD, non-toxic in appearance, AA&O x 4, answers questions appropriately. Skin: warm, dry, intact HEENT: NC/AT, anicteric sclera, conjunctiva without injection, moist mucus membranes. Heart: +S1/S2, regular, no m/r/g Lungs: equal air entry bilaterally, no rales/rhonchi/wheezes Abd: +BS, soft, NT/ND, uterine fundus firm at umbilicus Ext: warm, no clubbing/cyanosis or edema, Lawanda's neg. Neuro: nonfocal, patient AA&O x 4, speech intact, no facial droop, moving all extremities on command. Results & Data Vital Signs (Past 12 Hours) Vital Signs Temp Pulse Pulse Resp BP BP Pulse Ox 10/06/25 03:19 36.4 C L 72 16 112/82 97 10/06/25 00:30 36.8 C 77 16 115/68 94 10/05/25 20:26 36.7 C 73 16 125/79 98 10/05/25 20:09 76 10/05/25 20:09 114/56 L 10/05/25 20:08 36.8 C 16 10/05/25 19:54 76 10/05/25 19:54 116/58 L 10/05/25 19:39 78 10/05/25 19:39 121/58 L 10/05/25 19:38 18 10/05/25 19:24 77 10/05/25 19:24 107/58 L 10/05/25 19:09 78 10/05/25 19:09 101/63 10/05/25 19:08 18 10/05/25 18:54 84 10/05/25 18:54 111/65 10/05/25 18:53 36.8 C 16 O2 Del Method 10/06/25 03:19 Room Air 10/06/25 00:30 Room Air 10/05/25 20:26 Room Air 10/05/25 20:09 10/05/25 20:09 10/05/25 20:08 10/05/25 19:54 10/05/25 19:54 10/05/25 19:39 10/05/25 19:39 10/05/25 19:38 10/05/25 19:24 10/05/25 19:24 10/05/25 19:09 10/05/25 19:09 10/05/25 19:08 10/05/25 18:54 10/05/25 18:54 10/05/25 18:53 Laboratory Results OB Labs: Blood Type O Positive 03/09/25 Antibody Screen NEGATIVE 03/09/25 Hgb 11.0 g/dl (12.0-16.0) L 07/27/25 Hct 32.9 % (37.0-47.0) L 07/27/25 MCV 89.8 fL (80.0-100.0) 03/09/25 Plt Count 306 K/uL (130-400) 03/09/25 Rubella IgG Antibody Immune (Immune) 03/09/25 RPR Nonreactive (Nonreactive) 04/01/23 Treponema pallidum Ab Negative (Negative) 07/27/25 Hep Bs Antigen Negative (Negative) 03/09/25 Hep Bs Antigen NON-REACTIVE (NON-REACTIVE) 04/01/23 Hepatitis C Antibody Negative (Negative) 03/09/25 Hepatitis C Ab (EIA) NON-REACTIVE (NON-REACTIVE) 04/01/23 HIV 1&2 Ab/P24 Ag 4thGn Negative (Negative) 03/09/25 HIV (1&2) Ag & Ab Conf NON-REACTIVE (NON-REACTIVE) 04/01/23 Glucose 1 Hr 50 gm 152 mg/dl (70-130) H 05/06/23 OB Optional Labs: Chlamydia trachomatis RNA Not Detected (NotDetected) 03/09/25 Neisseria gonorrhoeae RNA Not Detected (NotDetected) 03/09/25 Resident Activity Tracking Resident Involvement: Resident Care Provided Care Provided: OB Delivery
[2025-10-06] MEDS: PRENATAL VITAMIN 1 TAB PO SCH (07:37)
[2025-10-06 10:11] LABS: Hematocrit (blood only) 31.2 % (37.0-47.0); Hemoglobin 10.2 g/dL (12.0-16.0); Mean Corpuscular Hemoglobin 28.2 pg (25.0-34.0); Mean Corpuscular Volume 86.2 fL (80.0-100.0); Platelet Count 251 K/uL (130-400); RDW Standard Deviation 43.2 fL (36.4-46.3); Red Blood Count 3.62 M/uL (4.20-5.40); White Blood Count 16.61 K/ul (4.8-10.8)
[2025-10-06 12:34] VITALS: RESP 16; TEMP 98.4
[2025-10-06 15:45] VITALS: BP 100/60; PULSE 77; O2SAT 98
== END 2025-10-06 18:35 | disposition home or self-care (01) | DRG 807 ==
LOC: 4S1 07:46 → 4E2 20:30